=== PATIENT | male | born 1990 | race Caucasian/White ===

== ENCOUNTER 2021-05-18 13:54 | Emergency (ER) | payer OTHER ==
[2021-05-18 15:39] LABS: HEMATOCRIT 42.6 % (42.0-52.0); HEMOGLOBIN 14.4 g/dl (13.5-17.5); MEAN CORPUSCULAR HEMOGLOBIN 29.9 pg (27.0-33.0); MEAN CORPUSCULAR HGB CONC 33.8 g/dl (32.0-36.5); MEAN CORPUSCULAR VOLUME 88.4 fl (80.0-96.0); PLATELET COUNT, AUTOMATED 333 10^3/uL (150-450); RED BLOOD COUNT 4.82 10^6/uL (4.30-6.10); WHITE BLOOD COUNT 19.5 10^3/uL (4.0-10.0)
[2021-05-18] MEDS ORDERED: HOME MED LIST COMPLETE! XX SCH (15:55)
[2021-05-18 16:23] LABS: ACETAMINOPHEN LEVEL < 2.0 UG/ML (10.0-30.0); ALBUMIN 4.5 GM/DL (3.2-5.2); ALT/SGPT 28 U/L (12-78); BILIRUBIN,DIRECT < 0.1 MG/DL (0.0-0.2); BILIRUBIN,TOTAL 0.3 MG/DL (0.2-1.0); BLOOD UREA NITROGEN 17 MG/DL (7-18); CALCIUM LEVEL 10.2 MG/DL (8.5-10.1); CARBON DIOXIDE LEVEL 27 MEQ/L (21-32); CHLORIDE LEVEL 107 MEQ/L (98-107); CREATININE FOR GFR 1.07 MG/DL (0.70-1.30); ETHYL ALCOHOL (ETHANOL) < 0.003 % (0.000-0.010); FREE T4 1.29 NG/DL (0.76-1.46); GLOMERULAR FILTRATION RATE > 60.0 (>60); GLUCOSE, FASTING 82 MG/DL (70-100); POTASSIUM SERUM 4.1 MEQ/L (3.5-5.1); SALICYLATE LEVEL < 1.7 MG/DL (5.0-30.0); SODIUM LEVEL 139 MEQ/L (136-145); TOTAL PROTEIN 7.9 GM/DL (6.4-8.2)
[2021-05-18 17:59] LABS: AMPHETAMINES LEVEL URINE NEGATIVE (NEGATIVE); BARBITURATES URINE NEGATIVE (NEGATIVE); BENZODIAZEPINES URINE NEGATIVE (NEGATIVE); CANNABINOIDS URINE POSITIVE (NEGATIVE); COCAINE METABOLITE URINE NEGATIVE (NEGATIVE); METHADONE URINE NEGATIVE (NEGATIVE); OPIATES URINE NEGATIVE (NEGATIVE); PHENCYCLIDINE URINE NEGATIVE (NEGATIVE)
[2021-05-19 06:49] VITALS: BP 136/90
== END 2021-05-19 16:13 | disposition home or self-care (01) ==
LOC: M ED 13:54
DX: F43.0 Acute stress reaction (principal); F17.290 Nicotine dependence, other tobacco product, uncomplicated; F12.10 Cannabis abuse, uncomplicated; F15.10 Other stimulant abuse, uncomplicated

== ENCOUNTER → 2022-01-31 | Outpatient (CLI) | payer OTHER ==
[2022-01-31 19:30] LABS: APPEARANCE, URINE MANUAL CLEAR (CLEAR); COLOR, URINE MANUAL YELLOW (YELLOW)
[2022-01-31 19:32] LABS: BILIRUBIN, URINE MANUAL NEGATIVE (NEGATIVE); GLUCOSE, URINE (UA) MANUAL NEGATIVE (NEGATIVE); KETONE, URINE MANUAL NEGATIVE (NEGATIVE); LEUKOCYTE ESTERASE, URINE MAN NEGATIVE (NEGATIVE); NITRITE, URINE MANUAL NEGATIVE (NEGATIVE); PROTEIN, URINE MANUAL NEGATIVE (NEGATIVE); UROBILINOGEN, URINE MANUAL NORMAL (NORMAL)
[2022-01-31 19:33] LABS: BLOOD URINE MANUAL NEGATIVE (NEGATIVE)
== END ==
LOC: M WUC 15:35
PROVIDERS: ATTEND Physician Assistant
DX: R10.11 Right upper quadrant pain (principal)

== ENCOUNTER → 2022-02-16 | Outpatient (CLI) | payer OTHER | LOC: M RAD 13:08 | PROVIDERS: ATTEND Physician Assistant | DX: R10.11 Right upper quadrant pain (principal); N50.811 Right testicular pain ==

== ENCOUNTER 2023-05-18 18:54 | Inpatient (IN) | payer OTHER ==
[~2023-05-18] VITALS: Ht 182.9 cm; Wt 99.0 kg
[2023-05-18 20:00] LABS: HEMATOCRIT 41.3 % (42.0-52.0); HEMOGLOBIN 13.9 g/dl (13.5-17.5); MEAN CORPUSCULAR HEMOGLOBIN 30.2 pg (27.0-33.0); MEAN CORPUSCULAR HGB CONC 33.7 g/dl (32.0-36.5); MEAN CORPUSCULAR VOLUME 89.8 fl (80.0-96.0); PLATELET COUNT, AUTOMATED 343 10^3/uL (150-450)
[2023-05-18 20:21] LABS: ALBUMIN 4.1 G/DL (3.2-5.2); ALKALINE PHOSPHATASE 51 U/L (46-116); ALT/SGPT 29 U/L (7.0-40); AST/SGOT 20 U/L (<34); BILIRUBIN,DIRECT 0.1 MG/DL (<0.4); BILIRUBIN,TOTAL 0.3 MG/DL (0.3-1.2); BLOOD UREA NITROGEN 15 MG/DL (9-23); CALCIUM LEVEL 9.7 MG/DL (8.5-10.1); CARBON DIOXIDE LEVEL 23 MMOL/L (20-31); CHLORIDE LEVEL 106 MMOL/L (98-107); CREATININE FOR GFR 0.83 MG/DL (0.70-1.30); GLOMERULAR FILTRATION RATE > 60.0 (>60); GLUCOSE, FASTING 105 MG/DL (60-100); POTASSIUM SERUM 3.9 MMOL/L (3.5-5.1); SALICYLATE LEVEL < 3.0 MG/DL (<30); SODIUM LEVEL 139 MMOL/L (136-145)
[2023-05-18 20:23] LABS: THYROID STIMULATING HORMONE 0.884 uIU/ML (0.55-4.78)
[2023-05-18 20:42] LABS: ETHYL ALCOHOL (ETHANOL) < 0.003 % (0.000-0.010)
[2023-05-18 20:42] LABS: AMPHETAMINES LEVEL URINE NEGATIVE (NEGATIVE); BARBITURATES URINE NEGATIVE (NEGATIVE); BENZODIAZEPINES URINE NEGATIVE (NEGATIVE); COCAINE METABOLITE URINE NEGATIVE (NEGATIVE); METHADONE URINE NEGATIVE (NEGATIVE); OPIATES URINE NEGATIVE (NEGATIVE); PHENCYCLIDINE URINE NEGATIVE (NEGATIVE)
[2023-05-18 20:50] LABS: CANNABINOIDS URINE POSITIVE (NEGATIVE)
[2023-05-18] MEDS ORDERED: MOM 30ML SUSPENSION UDC PO PRN (20:55)
[2023-05-18] MEDS ORDERED: MAALOX 30 ML SUSP *UDC PO PRN (20:55)
[2023-05-18] MEDS ORDERED: diphenhydrAMINE 25MG CAP PO PRN (20:55)
[2023-05-18] MEDS ORDERED: ACETAMINOPHEN TAB 650MG DOSE (2X325MG) PO PRN (20:55)
[2023-05-18] MEDS ORDERED: HOME MED LIST COMPLETE! XX SCH (21:25)
[2023-05-19] MEDS: risperiDONE 2 MG TAB PO SCH (09:00)
[2023-05-19] MEDS: IBUPROFEN 400MG TAB PO PRN (11:07)
[2023-05-19 16:24] VITALS: BP 130/70; TEMP 98.6; O2SAT 97
[2023-05-19] MEDS: OLANZapine 5 MG TAB PO PRN (20:06)
[2023-05-19] MEDS: LORazepam 1 MG TAB PO PRN (20:06)
[2023-05-20 18:16] VITALS: BP 131/73; TEMP 98.1
[2023-05-21 06:02] VITALS: BP 147/69; TEMP 97.7; O2SAT 98
[2023-05-21 18:44] VITALS: BP 117/69; TEMP 97.3
[2023-05-22 06:00] VITALS: BP 146/85; TEMP 98; O2SAT 98
[2023-05-22] MEDS: risperiDONE 1 MG TAB PO SCH (08:28)
[2023-05-22] MEDS ORDERED: risperiDONE 2 MG TAB PO SCH (09:00)
[2023-05-22 17:20] VITALS: BP 116/78; TEMP 96.8; O2SAT 97
[2023-05-22] MEDS: risperiDONE 3 MG TAB PO SCH (20:10)
[2023-05-22] MEDS: traZODone 50 MG TAB PO PRN (20:11)
[2023-05-23 06:15] VITALS: BP 139/71; TEMP 99.1; O2SAT 97
[2023-05-23 07:49] LABS: CHOLESTEROL RISK RATIO 3.65 (<5); HDL CHOLESTEROL 32.3 MG/DL (>40); LDL CHOLESTEROL 53.7 MG/DL (<100); NON-HDL-C 85.7 MG/DL
[2023-05-23] MEDS ORDERED: RISP3TAB20 PO (08:39)
[2023-05-23] MEDS ORDERED: RISP1TAB42 PO (08:39)
== END 2023-05-23 11:33 | disposition home or self-care (01) | DRG 751 ==
LOC: M ED 18:54 → M ED INP 20:54 → M PSY 23:18
PROVIDERS: ADMIT Psychiatry & Neurology Psychiatry; ATTEND Student in an Organized Health Care Education/Training Program
DX: F29 Unspecified psychosis not due to a substance or known physiological condition (principal); F17.200 Nicotine dependence, unspecified, uncomplicated; F12.90 Cannabis use, unspecified, uncomplicated; M79.2 Neuralgia and neuritis, unspecified